=== PATIENT | female | born 1960 | race American Indian/Alaskan Native ===

== ENCOUNTER 2018-04-30 14:09 | Outpatient (CLI) | payer BC ==
--- NOTE | 2018-05-03 09:26 | Mammography Report ---
BILATERAL DIGITAL SCREENING MAMMOGRAM : 04/30/18 14:09:00 CLINICAL: Routine screening.Note that CAD was not utilized for this exam. COMPARISON:09/14/15 FINDINGS: The breasts are heterogeneously dense, which may obscure small masses.A right asymmetry on the MLO view requires additional imaging. No architectural distortion or suspicious calcifications. The left breast is negative. IMPRESSION: Right asymmetry requiring additional imaging. BI-RADS CATEGORY: 0--Needs Additional Imaging RECOMMENDATION: Recall for right LM and MLO spot magnification views and right breast ultrasound if needed. COMMENT: Patient follow-up letters are generated by our [employer] application.
== END 2018-04-30 14:10 | disposition home or self-care (01) ==
LOC: SPVWC 14:09
PROVIDERS: ATTEND Family Medicine
DX: Z12.31 Encounter for screening mammogram for malignant neoplasm of breast (principal)
CPT/HCPCS: 77067

== ENCOUNTER 2018-08-05 13:47 | Outpatient (CLI) | payer BC ==
--- NOTE | 2018-08-05 14:23 | Mammography Report ---
RIGHT DIGITAL DIAGNOSTIC MAMMOGRAM : 08/05/18 13:47:00 CLINICAL: Recalled for asymmetry. COMPARISON:04/30/18 screening FINDINGS: Additional mammographic views were performed and are negative. IMPRESSION: Negative Mammogram. BI-RADS CATEGORY: 1 -- Negative RECOMMENDATION: Routine mammographic screening in one year. ACR BI-RADS MAMMOGRAPHIC CODES: 0 = Needs additional imaging evaluation; 1 = Negative; 2 = Benign; 3 = Probably benign; 4 = Suspicious; 5 = Malignant; 6 = Known biopsy-proven malignancy COMMENT: 1. Dense breast tissue, i.e., adenosis, fibrocystic changes, etc., may obscure an underlying neoplasm. 2. Approximately 10% of cancers are not detected with mammography. 3. A negative mammography report should not delay biopsy if a clinically suspicious mass is present. COMMENT: Patient follow-up letters are generated via our [employer] application.
== END 2018-08-05 13:48 | disposition home or self-care (01) ==
LOC: SPVWC 13:47
PROVIDERS: ATTEND Family Medicine
DX: R92.8 Other abnormal and inconclusive findings on diagnostic imaging of breast (principal)

== ENCOUNTER 2018-12-20 04:06 | Emergency (ER) | payer BC ==
[2018-12-20 04:16] VITALS: BP 154/98
[2018-12-20 05:34] LABS: Basophils % (Auto) 0.7 % (0.0-1.8); Eosinophils # (Auto) 0.3 K/mm3 (0.0-0.4); Eosinophils % (Auto) 3.7 % (0.0-4.3); Hematocrit 42.1 % (30.3-42.9); Hemoglobin 14.5 gm/dl (10.1-14.3); Lymphocytes # (Auto) 1.7 K/mm3 (1.2-5.4); Lymphocytes % (Auto) 25.2 % (13.4-35.0); Mean Corpuscular HGB Conc 35 % (30-34); Mean Corpuscular Volume 94 fl (79-97); Monocytes # (Auto) 0.6 K/mm3 (0.0-0.8); Platelet Count 200 K/mm3 (140-440); Red Blood Count 4.47 M/mm3 (3.65-5.03); Red Cell Distribution Width 13.8 % (13.2-15.2)
[2018-12-20 05:40] LABS: BUN/Creatinine Ratio 13; Blood Urea Nitrogen 10 mg/dL (7-17); Calcium 9.1 mg/dL (8.4-10.2); Hemolysis Index 17
[2018-12-20 05:52] LABS: Bilirubin,Urine NEG (Negative); Blood,Urine SM (Negative); Color,Urine Straw (Yellow); Protein,Urine <15 mg/dL mg/dL (Negative); Urobilinogen,Urine < 2.0 mg/dL (<2.0)
--- NOTE | 2018-12-20 05:58 | Emergency Department Report ---
ED Female HPI - General Chief complaint: Abdominal Pain Stated complaint: RIGHT AND LEFT FLANK PAIN Time Seen by Provider: 12/20/18 04:52 Source: patient Mode of arrival: Ambulatory Limitations: No Limitations - History of Present Illness Initial comments: 58-year-old [place] female comes to the emergency room for 4 days of left flank pain. Patient denies any radiation to the pelvic or abdomen. She admits to mild nausea denies any vomiting diarrhea and some mild abdominal discomfort that comes and goes. Nothing makes it worse nothing makes it better. Patient denies any vaginal discharge or vaginal bleeding complaints mostly of lower back pain. 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 Patient reports that she is taking Advil which helps the pain returns. Patient does report a past medical history of hematuria currently takes no medications and has no known drug allergies. -: days(s) (4) Radiation: L flank Severity: moderate Severity scale (0 -10): 7 Quality: aching Consistency: intermittent Improves with: medication (Advil) Worsens with: none Are you Now?: No Associated Symptoms: abdominal pain (mild intermittent). denies: vaginal discharge, vaginal bleeding, nausea/vomiting (nausea no vomiting), fever/chills, headaches, dysuria, hematuria - Related Data Allergies Allergy/AdvReac Type Severity Reaction Status Date / Time No Known Allergies Allergy Unverified 12/20/18 04:16 ED Review of Systems ROS: Stated complaint: RIGHT AND LEFT FLANK PAIN Other details as noted in HPI Comment: All other systems reviewed and negative Musculoskeletal: back pain (left lower back) ED Past Medical Hx - Past Medical History Previous Medical History?: No - Surgical History Past Surgical History?: No - Social History Smoking Status: Never Smoker Substance Use Type: None ED Physical Exam - General Limitations: No Limitations General appearance: alert, in no apparent distress - Head Head exam: Present: atraumatic, normocephalic - Eye Eye exam: Present: EOMI - ENT ENT exam: Present: mucous membranes moist - Respiratory Respiratory exam: Present: normal lung sounds bilaterally. Absent: respiratory distress - Cardiovascular Cardiovascular Exam: Present: regular rate, normal rhythm. Absent: systolic murmur, diastolic murmur, rubs, gallop - GI/Abdominal GI/Abdominal exam: Present: soft. Absent: distended, tenderness - Extremities Exam Extremities exam: Present: normal inspection, full ROM - Back Exam Back exam: Present: tenderness (left thoracic and lumbar tenderness), other (pain elicited when bending or twisting) - Neurological Exam Neurological exam: Present: alert, oriented X3, normal gait - Psychiatric Psychiatric exam: Present: normal affect, normal mood - Skin Skin exam: Present: warm, dry, intact, normal color. Absent: rash ED Course Vital Signs 12/20/18 04:12 Temperature 97.7 F Pulse Rate 93 H Respiratory 16 Rate Blood Pressure 154/98 O2 Sat by Pulse 98 Oximetry ED Medical Decision Making - Lab Data Result diagrams: 12/20/18 05:04 12/20/18 05:04 - Medical Decision Making Patient has been evaluated by this provider in fast track. Urinalysis CBC BMP within stable condition. I discussed the patient is appears that this is mostly musculoskeletal as pain is elicited with movement and twisting and deep palpation of the lumbar and sacral. Discussed with patient to continue with ibuprofen or Aleve [id number]. Increase her water intake and to follow-up with her primary care provider. Critical care attestation.: If time is entered above; I have spent that time in minutes in the direct care of this critically ill patient, excluding procedure time. ED Disposition Clinical Impression: Lower back pain Qualifiers: Chronicity: acute Back pain laterality: left Sciatica presence: without sciatica Qualified Code(s): M54.5 - Low back pain Disposition: DC-01 TO HOME OR SELFCARE Is pt being admited?: No Does the pt Need Aspirin: No Condition: Stable Instructions: Abdominal Pain (ED) Additional Instructions: Please continue with Tylenol and or leave or ibuprofen for pain management. You may want to try warm heating pad or [id number] Aspercreme. If her symptoms persist or gets worse please follow up with her primary care provider. Please increase her water intake while taking ibuprofen or Aleve. Referrals: PRIMARY CARE, [Primary Care Provider] - 3-5 Days RAFAEL JIMENEZ MD [Referring] - 3-5 Days Forms: Work/School Release Form(ED)
== END 2018-12-20 06:39 | disposition home or self-care (01) ==
LOC: ED 04:06
DX: M54.5 Low back pain (principal)
CPT/HCPCS: 36415; 80048; 81001; 85025; 99283